=== PATIENT | female | born 1985 | race African-American/Black ===

== ENCOUNTER 2017-04-12 18:53 | Emergency (ER) | payer OTHER ==
[2017-04-12 18:58] VITALS: BP 143/89; PULSE 83; TEMP 98; BMI 28.1
--- NOTE | 2017-04-12 20:27 | PDOC ---
History of Present Illness - General Chief Complaint: Cold Symptoms Stated Complaint: WHEEZING Time Seen by Provider: 04/12/17 19:55 - History of Present Illness Initial Comments: 04/12/17 20:22 CHIEF COMPLAINT: cough HISTORY OF PRESENT ILLNESS: 31 yo F with no significant PMH presents to [facility] with cough x 3 weeks. Patient denies fever, nausea, vomiting, or diarrhea but states "I feel chills right now." Patient states she saw her ENT doctor "like 3 weeks ago" and was prescribed "some antibiotic" but she states she did not finish the entire course and is unsure what the medication was and how she was supposed to take it. She states that "school sent me home today because they said I was wheezing." PAST MEDICAL HISTORY: Denies past medical history FAMILY HISTORY: Denies SOCIAL HISTORY:Denies tobacco, alcohol, illicit drug use. SURGICAL HISTORY: Denies ALLERGIES: codeine, morphine REVIEW OF SYSTEMS General/Constitutional: Chills. Denies fever. Denies weakness. HEENT: "I always have giant tonsils, I've been trying to get them out but it hasn't happened." Denies change in vision. Cardiovascular: Denies chest pain or shortness of breath. Respiratory: Cough x 3 weeks, wheezing today. Denies hemoptysis. Gastrointestinal: Denies nausea, vomiting, diarrhea or constipation. Denies rectal bleeding. Genitourinary: Denies dysuria, frequency, or change in urination. Musculoskeletal: Denies joint or muscle swelling or pain. Denies neck or back pain. Skin and breasts: Denies rash or easy bruising. PHYSICAL EXAM General Appearance: Well-appearing, appropriately dressed. No apparent distress. HEENT: Tonsils 3+ b/l, no erythema or exudate. EOMI, PERRLA, normal voice, TMs normal. No conjunctival pallor. No photophobia, scleral icterus. Respiratory/Chest: Productive cough. Wheezing to RLL. No shortness of breath, respiratory distress, accessory muscle use. No crackles, rales, rhonchi, stridor , dullness. Cardiovascular: RRR. S1, S2. No JVD, murmur, bradycardia, tachycardia. Musculoskeletal/Extremities: Normal inspection. FROM of all extremities, normal capillary refill. No tenderness to extremities, pedal edema, swelling, erythema or deformity. Integumentary: Appropriate color, dry, warm. 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 Fully oriented, alert. Appropriate mood/affect. Motor strength 5/5. No appreciable EOM palsy, facial droop or sensory deficit. Past History - Past Medical History Allergies/Adverse Reactions: Allergies Allergy/AdvReac Type Severity Reaction Status Date / Time codeine Allergy Verified 04/12/17 18:58 morphine Allergy Verified 04/12/17 18:58 Home Medications: Ambulatory Orders Albuterol Sulfate Inhaler - [Ventolin HFA Inhaler -] 1 - 2 inh PO Q4H PRN #1 inhaler 04/12/17 Azithromycin [Zithromax 250mg Tablets -] 250 mg PO ASDIR #6 tab 04/12/17 Dextromethorphan HBr [Robitussin] 15 mg PO QID PRN #28 capsule 04/12/17 Ibuprofen 600 mg PO TID PRN #28 tablet 04/12/17 Asthma: No Cancer: No Cardiac Disorders: Yes (HEART MURMUR) Diabetes: No HTN: No Seizures: No Thyroid Disease: No - Suicide/Smoking/Psychosocial Hx Smoking History: Current every day smoker Have you smoked in the past 12 months: Yes Number of Cigarettes Smoked Daily: 6 Information on smoking cessation initiated: No 'Breaking Loose' booklet given: 03/14/16 Hx Alcohol Use: Yes (Socially) Drug/Substance Use Hx: No Substance Use Type: None Hx Substance Use Treatment: No *Physical Exam - Vital Signs Last Vital Signs Temp Pulse Resp BP Pulse Ox 98 F 83 22 143/89 99 04/12/17 18:55 04/12/17 18:55 04/12/17 18:55 04/12/17 18:55 04/12/17 18:55 ED Treatment Course - ADDITIONAL ORDERS Additional order review: Laboratory Results 04/12/17 20:10 Urine HCG, Qual Negative - RADIOLOGY Radiology Studies Ordered: Category Date Time Status CHEST PA & LAT [RAD] Stat Radiology 04/12/17 20:09 Ordered Medical Decision Making - Medical Decision Making 04/12/17 20:27 31 yo F with no significant PMH presents to fast track with cough x 3 weeks. -flu swab *DC/Admit/Observation/Transfer Diagnosis at time of Disposition: Bronchitis - Discharge Dispostion Disposition: HOME Condition at time of disposition: Stable Admit: No - Prescriptions Prescriptions: Ibuprofen 600 mg PO TID PRN #28 tablet PRN Reason: Fever or body aches Dextromethorphan HBr [Robitussin] 15 mg PO QID PRN #28 capsule PRN Reason: Cough Albuterol Sulfate Inhaler - [Ventolin HFA Inhaler -] 1 - 2 inh PO Q4H PRN #1 inhaler PRN Reason: Wheezing Azithromycin [Zithromax 250mg Tablets -] 250 mg PO ASDIR #6 tab - Patient Instructions Printed Discharge Instructions: DI for Acute Bronchitis Additional Instructions: Please take medications as prescribed. Please get plenty of rest and drink lots of fluids. Follow up with your primary care doctor in 3-5 days. If you develop any persistent fever, chills, vomiting, diarrhea or any new or worsening symptoms, please return to the ER. - Post Discharge Activity Forms/Work/School Notes: Back to Work
== END 2017-04-12 21:55 | disposition home or self-care (01) ==
LOC: JERFT 18:53
DX: J40 Bronchitis, not specified as acute or chronic (principal); R01.1 Cardiac murmur, unspecified
CPT/HCPCS: 71020-TC; 84703; 87804; 99281-25

== ENCOUNTER 2017-08-31 15:46 | Emergency (ER) | payer OTHER ==
--- NOTE | 2017-08-31 15:51 | PDOC ---
Rapid Medical Evaluation Time Seen by Provider: 08/31/17 15:47 Medical Evaluation: Allergies Allergy/AdvReac Type Severity Reaction Status Date / Time codeine Allergy Verified 04/12/17 18:58 morphine Allergy Verified 04/12/17 18:58 08/31/17 15:51 I have performed a brief in-person evaluation of this patient. The patient presents with a chief complaint of:body aches w/ f/c x 2 days, children w/ similar sxs Pertinent physical exam findings:Unremarkable I have ordered the following:nothing The patient will proceed to the ED for further evaluation. 08/31/17 15:59
[2017-08-31 15:59] VITALS: BP 154/85; PULSE 80; TEMP 98.3; BMI 27.8
--- NOTE | 2017-08-31 17:04 | PDOC ---
History of Present Illness - General Chief Complaint: Respiratory Stated Complaint: FEVER, COUGH Time Seen by Provider: 08/31/17 15:47 History Source: Patient Exam Limitations: No Limitations - History of Present Illness Initial Comments: 08/31/17 16:59 31 year old female with history of asthma present with 2 children complaining of flu-like symptoms, fever and sorethroat. States took tylenol and theraflu with no reports of relief. Timing/Duration: reports: other (3 days) Severity: reports: mild Possible Cause: Yes: illness exposure Modifying Factors: improves with: albuterol inhaler Associated Symptoms: reports: cough, muscle aches, nasal congestion, sore throat Aspirin Received prior to arrival: Yes: no aspirin today ASA Contraindications(Core Measure): No: Allergy Past History - Travel Traveled outside of the country in the last 30 days: No - Past Medical History Allergies/Adverse Reactions: Allergies Allergy/AdvReac Type Severity Reaction Status Date / Time codeine Allergy Verified 04/12/17 18:58 morphine Allergy Verified 04/12/17 18:58 Home Medications: Ambulatory Orders Oseltamivir Phosphate [Tamiflu] 75 mg PO BID 5 Days #10 capsule 08/31/17 Asthma: No Cancer: No Cardiac Disorders: Yes (HEART MURMUR) COPD: No Diabetes: No HTN: No Seizures: No Thyroid Disease: No - Suicide/Smoking/Psychosocial Hx Smoking History: Current every day smoker Have you smoked in the past 12 months: Yes Number of Cigarettes Smoked Daily: 6 Information on smoking cessation initiated: No 'Breaking Loose' booklet given: 03/14/16 Hx Alcohol Use: Yes (Socially) Drug/Substance Use Hx: No Substance Use Type: None Hx Substance Use Treatment: No Respiratory Specific PMHX - Complaint Specific PMHX Bronchitis: Yes Review of Systems - Review of Systems Able to Perform ROS?: Yes Is the patient limited Sinhala proficient: No Constitutional: Yes: Chills, Fever HEENTM: Yes: Throat Pain Respiratory: Yes: Cough Cardiac (ROS): No: Lightheadedness ABD/GI: Yes: Vomiting. No: Nausea, Poor Fluid Intake, Indigestion : No: Burning Musculoskeletal: No: Back Pain Integumentary: No: Bruising Neurological: Yes: Headache. No: Numbness *Physical Exam - Vital Signs Last Vital Signs Temp Pulse Resp BP Pulse Ox 98.3 F 80 18 154/85 99 08/31/17 15:56 08/31/17 15:56 08/31/17 15:56 08/31/17 15:56 08/31/17 15:56 - Physical Exam General Appearance: Yes: Nourished, Appropriately Dressed. No: Apparent Distress HEENT: positive: EOMI, Rhinorrhea Neck: positive: Supple. negative: Lymphadenopathy (R), Lymphadenopathy (L) Respiratory/Chest: positive: Lungs Clear. 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, Fully Oriented, Alert Medical Decision Making - Medical Decision Making 08/31/17 17:09 31 year old female with history of asthma presents with two half-way complaining of flu-like symptoms rapid strep ordered Rx: tamiflu *DC/Admit/Observation/Transfer Diagnosis at time of Disposition: Flu-like symptoms Pharyngitis Qualifiers: Pharyngitis/tonsillitis etiology: other specified organisms Qualified Code(s): J02.8 - Acute pharyngitis due to other specified organisms - Discharge Dispostion Disposition: HOME Condition at time of disposition: Good - Prescriptions Prescriptions: Oseltamivir Phosphate [Tamiflu] 75 mg PO BID 5 Days #10 capsule - Referrals - Patient Instructions Printed Discharge Instructions: DI for Viral Upper Respiratory Infection -- Adult Additional Instructions: Drink plenty fluids take medication as prescribed follow up with primary physician - Post Discharge Activity Forms/Work/School Notes: Back to Work
== END 2017-08-31 17:22 | disposition home or self-care (01) ==
LOC: JERFT 15:46
DX: J11.1 Influenza due to unidentified influenza virus with other respiratory manifestations (principal)
CPT/HCPCS: 87070; 87430; 99281-25

== ENCOUNTER 2018-06-03 12:41 | Emergency (ER) | payer OTHER ==
[2018-06-03 13:03] VITALS: BP 134/90; PULSE 84; TEMP 98.7; BMI 28.1
--- NOTE | 2018-06-03 14:42 | PDOC ---
History of Present Illness - General Chief Complaint: Cold Symptoms Stated Complaint: UPPER RESPIRATORY INFECTION Time Seen by Provider: 06/03/18 14:01 History Source: Patient Exam Limitations: No Limitations - History of Present Illness Initial Comments: 06/03/18 14:42 has been sick with upper respiratory infection this past week, needed to call in sick to work. States feels much improved but needed clearance for work return. Patient denies fever, has an infrequent nonproductive cough, and no other illness symptoms presently. Timing/Duration: reports: gone now Severity: reports: mild Associated Symptoms: reports: denies symptoms, fever/chills Past History - Travel Traveled outside of the country in the last 30 days: No Close contact w/someone who was outside of country & ill: No - Past Medical History Allergies/Adverse Reactions: Allergies Allergy/AdvReac Type Severity Reaction Status Date / Time codeine Allergy Verified 06/03/18 13:00 morphine Allergy Verified 06/03/18 13:00 oseltamivir [From Tamiflu] Allergy Verified 06/03/18 14:09 Home Medications: Ambulatory Orders NK [No Known Home Medication] 06/03/18 Asthma: No Cancer: No Cardiac Disorders: Yes (HEART MURMUR) COPD: No CHF: No Diabetes: No HTN: No Seizures: No Thyroid Disease: No - Suicide/Smoking/Psychosocial Hx Smoking History: Never smoked Have you smoked in the past 12 months: Yes Number of Cigarettes Smoked Daily: 6 Information on smoking cessation initiated: No 'Breaking Loose' booklet given: 03/14/16 Hx Alcohol Use: No Drug/Substance Use Hx: No Substance Use Type: None Hx Substance Use Treatment: No Respiratory Specific PMHX - Complaint Specific PMHX Bronchitis: Yes Review of Systems - Review of Systems Able to Perform ROS?: Yes Is the patient limited Iranian proficient: Yes Constitutional: Yes: Symptoms Reported, See HPI, Malaise. No: Fever HEENTM: Yes: Symptoms Reported, See HPI, Nose Congestion Respiratory: Yes: See HPI, Cough Integumentary: Yes: Symptoms Reported All Other Systems: Reviewed and Negative *Physical Exam - Vital Signs Last Vital Signs Temp Pulse Resp BP Pulse Ox 98.7 F 84 16 134/90 100 06/03/18 12:50 06/03/18 12:50 06/03/18 12:50 06/03/18 12:50 06/03/18 12:50 - Physical Exam General Appearance: Yes: Nourished, Appropriately Dressed. No: Apparent Distress, Mild Distress HEENT: positive: KIKE, Normal ENT Inspection, TMs Normal. negative: Pharynx Normal (grossly enlarged tonsils that are not erythematous or exudative. Patient states has baseline) Neck: positive: Tender, Supple. negative: Lymphadenopathy (R), Lymphadenopathy (L) Respiratory/Chest: positive: Lungs Clear, Normal Breath Sounds. 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, Fully Oriented, Alert, Normal Mood/ Affect, Motor Strength 11/12 Progress Note - Progress Note Progress Note: Upper respiratory infection, healing *DC/Admit/Observation/Transfer Diagnosis at time of Disposition: Upper respiratory infection, viral - Discharge Dispostion Disposition: HOME Condition at time of disposition: Stable Decision to Admit order: No - Referrals - Patient Instructions Printed Discharge Instructions: DI for Viral Upper Respiratory Infection -- Adult Additional Instructions: Rest, drink lots of fluids: Teas, water, soups, Pedialyte Saltwater gargles Steamy showers/seem to face break up mucus Avoid contact with others until fevers and cough resolved Lots of handwashing and good hygiene Continue [id number] medications for symptomatic relief Tylenol or Motrin for fever and pain Followup with private physician in one to 2 days as needed Return to emergency department for worsened symptoms, fevers, dehydration - Post Discharge Activity Forms/Work/School Notes: Back to Work
== END 2018-06-03 14:44 | disposition home or self-care (01) ==
LOC: JERFT 12:41
DX: J06.9 Acute upper respiratory infection, unspecified (principal); B97.89 Other viral agents as the cause of diseases classified elsewhere
CPT/HCPCS: 99281-25

== ENCOUNTER 2018-07-09 17:51 | Emergency (ER) | payer OTHER ==
[2018-07-09 17:59] VITALS: BP 136/87; PULSE 82; TEMP 98.4; BMI 29.5
--- NOTE | 2018-07-09 18:21 | PDOC ---
History of Present Illness - General Chief Complaint: Eye Problem Stated Complaint: REDNESS TO EYE Time Seen by Provider: 07/09/18 18:06 History Source: Patient Exam Limitations: No Limitations - History of Present Illness Initial Comments: 07/09/18 18:17 right eye itchy, red for 3 days had crusted discharge yesterday sent from work. Past History - Past Medical History Allergies/Adverse Reactions: Allergies Allergy/AdvReac Type Severity Reaction Status Date / Time codeine Allergy Verified 07/09/18 17:56 morphine Allergy Verified 07/09/18 17:56 oseltamivir [From Tamiflu] Allergy Verified 07/09/18 17:56 Home Medications: Ambulatory Orders Sulfacetamide Sodium 10% [Bleph-10] 2 drop OD Q6H #1 bottle 07/09/18 Asthma: No Cancer: No Cardiac Disorders: Yes (HEART MURMUR) COPD: No CHF: No Diabetes: No HTN: No Seizures: No Thyroid Disease: No - Suicide/Smoking/Psychosocial Hx Smoking History: Current every day smoker Have you smoked in the past 12 months: Yes Number of Cigarettes Smoked Daily: 3 Information on smoking cessation initiated: Yes 'Breaking Loose' booklet given: 03/14/16 Hx Alcohol Use: No Drug/Substance Use Hx: No Substance Use Type: None Hx Substance Use Treatment: No *Physical Exam - Vital Signs Last Vital Signs Temp Pulse Resp BP Pulse Ox 98.4 F 82 18 136/87 99 07/09/18 17:56 07/09/18 17:56 07/09/18 17:56 07/09/18 17:56 07/09/18 17:56 - Physical Exam General Appearance: Yes: Nourished, Appropriately Dressed HEENT: positive: EOMI, KIKE, TMs Normal, Pharynx Normal, Nasal Congestion, Other (right eye with mild conjunctiva redness, sclera redness, swelling to lower lid ). negative: Rhinorrhea Neck: positive: Supple Moderate Sedation - Procedure Monitoring Vital Signs: Procedure Monitoring Vital Signs Temperature 98.4 F 07/09/18 17:56 Pulse Rate 82 07/09/18 17:56 Respiratory Rate 18 07/09/18 17:56 Blood Pressure 136/87 07/09/18 17:56 O2 Sat by Pulse Oximetry (%) 99 07/09/18 17:56 Medical Decision Making - Medical Decision Making 07/09/18 18:22 cc: right eye itchy red with crusted drainage nasal congestion dc inst verbally discussed all questions asked and answered *DC/Admit/Observation/Transfer Diagnosis at time of Disposition: Conjunctivitis Qualifiers: Conjunctivitis type: acute Acute conjunctivitis type: viral Laterality: right Qualified Code(s): B30.9 - Viral conjunctivitis, unspecified - Discharge Dispostion Disposition: HOME Condition at time of disposition: Good - Prescriptions Prescriptions: Sulfacetamide Sodium 10% [Bleph-10] 2 drop OD Q6H #1 bottle - Referrals Referrals: Anup Dumas MD [Staff Physician] - - Patient Instructions Printed Discharge Instructions: DI for Conjunctivitis Additional Instructions: use the drops as directed frequent hand washing no sharing of makeup wash sheets, towels to prevent spreading to other eye follow with the eye doctor listed below if symptoms worsen or do not improve despite using the eye drops - Post Discharge Activity Forms/Work/School Notes: Back to Work
== END 2018-07-09 18:22 | disposition home or self-care (01) ==
LOC: JERFT 17:51
DX: B30.9 Viral conjunctivitis, unspecified (principal)
CPT/HCPCS: 99281-25

== ENCOUNTER 2019-02-27 13:09 | Emergency (ER) | payer OTHER ==
[2019-02-27 13:24] VITALS: TEMP 98.1; BMI 32.4
[2019-02-27] MEDS ORDERED: ACETAMINOPHEN 500 MG TABLET (FP) PO ONE (13:56)
--- NOTE | 2019-02-27 14:02 | PDOC ---
History of Present Illness - General Chief Complaint: Syncope/Near Syncope Stated Complaint: SYNCOPE Time Seen by Provider: 02/27/19 13:35 History Source: Patient Exam Limitations: No Limitations - History of Present Illness Initial Comments: 02/27/19 13:57 33yo F with no significant PMH presenting to ED with syncopal episode. Patient says she has been having syncopal episodes since she was a child but she has not had any follow up. She says that she passed out yesterday night then again this morning which prompted her ED visit. She says that both times she was playing with her kids. She says that her hands and her body starts to feel hot, she feels nauseous, she sees a neon green color and feels lightheaded. She does not notice a pattern as to what causes her to pass out. Patient states her son witnessed the episode and noticed head jerking but no mention of tonic/clonic movements. She says she is feeling short of breath and has a headache but denies confusion after episodes, incontinence, chest pain, neck pain, numbness/ tingling, weakness, dizziness, changes in vision, fevers, chills, vomiting, diarrhea, leg swelling, recent surgeries, recent travel, use of OCPs. She is not taking any medications or new supplements. No family history of sudden cardiac . PMD: PMH: none PSH: none Meds: none Allergies: morphine, codeine, tamiflu Social: 10 cigarettes/day, marijuana use, occasional alcohol use Past History - Past Medical History Allergies/Adverse Reactions: Allergies Allergy/AdvReac Type Severity Reaction Status Date / Time codeine Allergy Verified 02/27/19 13:24 morphine Allergy Verified 02/27/19 13:24 oseltamivir [From Tamiflu] Allergy Verified 02/27/19 13:24 Home Medications: Ambulatory Orders NK [No Known Home Medication] 02/27/19 Asthma: No Cancer: No Cardiac Disorders: Yes (HEART MURMUR) COPD: No CHF: No Diabetes: No HTN: No Seizures: No (refuses medication) Thyroid Disease: No - Suicide/Smoking/Psychosocial Hx Smoking History: Never smoked Have you smoked in the past 12 months: Yes Number of Cigarettes Smoked Daily: 3 'Breaking Loose' booklet given: 03/14/16 Hx Alcohol Use: No Drug/Substance Use Hx: No Substance Use Type: None Hx Substance Use Treatment: No Review of Systems - Review of Systems Constitutional: No: Chills, Fever, Weakness HEENTM: No: Symptoms Reported Respiratory: Yes: Shortness of Breath Cardiac (ROS): Yes: See HPI, Syncope ABD/GI: No: Symptoms Reported : No: Symptoms Reported Musculoskeletal: No: Symptoms Reported Integumentary: No: Symptoms Reported Neurological: No: Symptoms reported *Physical Exam - Vital Signs Last Vital Signs Temp Pulse Resp BP Pulse Ox 98.1 F 78 18 137/91 98 02/27/19 13:21 02/27/19 15:20 02/27/19 15:20 02/27/19 15:20 02/27/19 15:20 - Physical Exam General Appearance: Yes: Nourished, Appropriately Dressed. No: Apparent Distress HEENT: positive: EOMI, KIKE Neck: positive: Trachea midline, Supple. negative: Lymphadenopathy (R), Lymphadenopathy (L) Respiratory/Chest: positive: Lungs Clear, Normal Breath Sounds. negative: Rapid RR, Crackles, Rales, Rhonchi, Stridor, Wheezing Cardiovascular: positive: Regular Rhythm, Regular Rate, S1, S2. negative: Edema , JVD, Murmur Vascular Pulses: Dorsalis-Pedis (R): 2+, Doralis-Pedis (L): 2+ Gastrointestinal/Abdominal: positive: Normal Bowel Sounds, Soft. negative: Tender Musculoskeletal: negative: CVA Tenderness Extremity: positive: Normal Capillary Refill. negative: Swelling, Calf Tenderness Integumentary: positive: Normal Color, Dry, Warm Neurologic: positive: er medical technician II-XII NML intact, Fully Oriented, Alert, Normal Mood/ Affect, Normal Response, Motor Strength 5/5 Heart Score/ECG Review - ECG Intrepretation Rhythm: Regular Rhythm Comment:: 02/27/19 15:37 with sinus arrhythmia - [place]: Normal - P and [place] Delta Wave(s) Present: No WPW: No - QRS Poor R Wave Progression: No Q Wave Present: No - ST and T Early Repolarization: No Non Specific ST-T Wave changes: No Flattened T Waves: No Prolonged Q-T Interval: No - ECG Impressions Normal ECG: Yes Non-specific ST Elevation: No Ischemic Changes: No Bradycardia: No Torsades luan Pointes: No WPW: No ED Treatment Course - LABORATORY CBC & Chemistry Diagram: 02/27/19 14:15 02/27/19 14:15 - ADDITIONAL ORDERS Additional order review: Laboratory Results 02/27/19 02/27/19 02/27/19 14:15 14:15 14:15 Sodium 138 Potassium 4.2 Chloride 106 Carbon Dioxide 27 Anion Gap 5 L BUN 7.0 Creatinine 0.7 Est GFR (CKD-EPI)AfAm 133.81 Est GFR (CKD-EPI)NonAf 115.45 Random Glucose 109 H Calcium 9.0 Total Bilirubin 0.8 AST 12 L ALT 20 Alkaline Phosphatase 63 Troponin I < 0.02 Total Protein 7.2 Albumin 3.8 Urine HCG, Qual Negative 02/27/19 14:15 RBC 5.80 H MCV 73.7 L MCHC 32.2 RDW 14.7 D MPV 8.2 Neutrophils % 73.0 Lymphocytes % 19.3 Monocytes % 6.5 Eosinophils % 0.7 Basophils % 0.5 - Medications Given in the ED: ED Medications Discontinued Medications Generic Name Dose Route Start Last Admin Trade Name Ronald PRN Reason Stop Dose Admin Acetaminophen 975 mg 02/27/19 13:56 02/27/19 14:48 Tylenol - PO 02/27/19 13:57 975 mg ONCE ONE Administration Ketorolac Tromethamine 15 mg 02/27/19 16:25 02/27/19 16:37 Toradol Injection - IVPUSH 02/27/19 16:26 15 mg ONCE ONE Administration Medical Decision Making - Medical Decision Making 02/27/19 14:24 33yo F with no significant PMH presenting to ED with syncopal episode. Patient says she has been having syncopal episodes since she was a child but she has not had any follow up. She says that she passed out yesterday night then again this morning which prompted her ED visit. She says that both times she was playing with her kids. She says that her hands and her body starts to feel hot, she feels nauseous, she sees a neon green color and feels lightheaded. She does not notice a pattern as to what causes her to pass out. Patient states her son witnessed the episode and noticed head jerking but no mention of tonic/clonic movements. She says she is feeling short of breath and has a headache but denies confusion after episodes, incontinence, chest pain, neck pain, numbness/ tingling, weakness, changes in vision, fevers, chills, vomiting, diarrhea, leg swelling, recent surgeries, recent travel, use of OCPs. She is not taking any medications or new supplements. No family history of sudden cardiac . Ddx includes but not limited to vasovagal syncope, dysrhythmia, hocm, seizures, pe, anemia pt has an "aura" but no witnessed jerking or confusion, low suspicion for seizure. Patient seems to mention sycnopal episodes related to activity; will order ekg to check for dysrhythmias. PERC negative will order labs. likely vasovagal given sensations prior to these episodes. pt ambulating in ED without difficulty. 02/27/19 15:33 ekg: nsr at 78 with sinus arrhythmiapr 142. no blocks. qtc 428. no lizette or depressions. labs wnl. negative hcg. pt ambulatory. rpt vitals bp 137/91 hr 78. no syncopal episodes or seizure like activities in ED. safe for dc home. will give cardiology and neurology f/u. will advise patient to follow with pmd. Given strict return precautions. still having headache, will give toradol. OU . Does not want zofran rx *DC/Admit/Observation/Transfer Diagnosis at time of Disposition: Syncope Qualifiers: Syncope type: unspecified Qualified Code(s): R55 - Syncope and collapse - Discharge Dispostion Disposition: HOME Condition at time of disposition: Good Decision to Admit order: No - Referrals Referrals: Chrissy Patino MD [Staff Physician] - Isaias Duarte MD [Staff Physician] - - Patient Instructions Printed Discharge Instructions: DI for Syncope in Adults (Fainting) Additional Instructions: You were seen in the emergency room today for passing out (syncope). Your ekg is normal and your blood work is normal. This is likely vasovagal but I highly suggest that you see a shop service technician and a neurologist. Your primary care doctor may use a specific network, but you can reach out to the providers listed below. Please make an appointment with your primary care doctor this week regarding this ED visit. Please rest and drink plenty of fluids. Do not drive or operate machinery. You can take Motrin or Tylenol for the headaches. Come back to the emergency room if you pass out again, you have worsening headaches, you have chest pain, you feel like you cannot breathe, have changes in vision or if any new concerning symptom develops. Thank you - Post Discharge Activity Forms/Work/School Notes: Back to Work
[2019-02-27 14:39] LABS: BASO % 0.5 % (0-2.0); EOS % 0.7 % (0-4.5); HEMATOCRIT 42.7 % (32.4-45.2); HEMOGLOBIN 13.7 GM/dL (10.7-15.3); LYMPH % 19.3 % (8-40); MCH 23.7 pg (25.7-33.7); MCHC 32.2 g/dl (32.0-36.0); MEAN CELL VOLUME 73.7 fl (80-96); MEAN PLT VOLUME 8.2 fl (7.5-11.1); MONO % 6.5 % (3.8-10.2); PLATELET COUNT 301 K/MM3 (134-434); RDW 14.7 % (11.6-15.6)
[2019-02-27] MEDS ORDERED: ACETAMINOPHEN 325 MG TABLET (FP) ONE (14:46)
[2019-02-27 15:03] LABS: ALBUMIN 3.8 g/dl (3.4-5.0); BILIRUBIN,TOTAL 0.8 mg/dL (0.2-1); CREATININE 0.7 mg/dL (0.55-1.3); POTASSIUM 4.2 mmol/L (3.5-5.1); TOT PROT 7.2 g/dl (6.4-8.2)
[2019-02-27 15:21] VITALS: BP 137/91; PULSE 78
[2019-02-27] MEDS ORDERED: KETOROLAC TROMETHAMINE 30 MG/1 ML VIAL IVPUSH ONE (16:25)
[2019-02-27] MEDS ORDERED: KETOROLAC TROMETHAMINE 15 MG/ML VIAL ONE (16:31)
--- NOTE | 2019-02-27 16:33 | PDOC ---
Documentation entered by Belgica Mata SCRIBE, acting as scribe for Dina Peterson MD. Dina Peterson MD: This documentation has been prepared by the scribe, Belgica Mata SCRIBE, under my direction and personally reviewed by me in its entirety. I confirm that the documentation accurately reflects all work, treatment, procedures, and medical decision making performed by me. Attending Attestation - Resident Resident Name: HerlindaSoledad - ED Attending Attestation I have performed the following: I have examined & evaluated the patient, The case was reviewed & discussed with the resident, I agree w/resident's findings & plan, Exceptions are as noted - HPI HPI: 02/27/19 14:41 The patient is a 33-year-old female, with no past medical history, who presents to the ED s/p syncopal episode this morning. The patient reports that she also experienced a similar syncopal episode last night. During both episodes she states that she was playing her kids. She reports that her body and hands began to feel hot and subsequently she felt nauseous, lightheaded, and passed out. On exam, the patient reports that she is feeling short of breath and has a headache. The patient denies any chest pain or palpitations. Denies any weakness, vision changes, lower extremity swelling, or numbness or tingling. She denies any fevers, chills, vomiting, diarrhea, or abdominal pain. She denies any recent sick contacts or recent travel. Allergies: Codeine, morphine, oseltamivir. Social History: Current smoker (10 cigarettes daily). She reports marijuana use and occasional alcohol use. - Physicial Exam PE: 02/27/19 14:44 NAD, well appearing, EOMI, PERRL, MMM, visual acuity 20/20 no corrective lenses , nl conjunctiva, anicteric; neck supple. lungs clear, RRR, no murmur, abdomen soft nontender. Back nontender. BAZZI x4, no focal neuro deficits. No peripheral edema. normal color for ethnicity, WWP. gait stable. speech clear. oriented appropriately and alert 02/28/19 07:41 - Medical Decision Making 02/27/19 16:31 See HPI for details. Prior notes reviewed, including admissions, discharges and consultations. Vital signs reviewed, hypertensive initially, remainder of VS wnl. recheck BP Vital Signs Temp Pulse Resp BP Pulse Ox 98.1 F 78 18 137/91 98 02/27/19 13:21 02/27/19 15:20 02/27/19 15:20 02/27/19 15:20 02/27/19 15:20 DDx. syncope: considered interval abnormalities including short QTC or long QT syndrome, WPW, conduction abnormality, B[place], ACS, PE, electrolyte disturbances, metabolic derangement. seizure, laboratory results and imaging reviewed, basic labs and lytes wnl, neg preg test. Cardiac panel_neg, reassuring, doubt cardiac EKG normal sinus rhythm at 78 bpm, no interval abnormalities, narrow QRS, ST and T wave segments and morphology normal. Nonspecific T wave abnormalities ED course -interventions: analgesia, reassessed and improved neuro intact, no cp or sob or abd pain PERC neg, so doubt PE. no malignancy, immobilization, surgery or ocp use. visual acuity wnl no indication for imaging/CT at this time. VS rechecked, wnl. nontoxic appearing. ambulatory, kehinde PO intake and well appearing syncope instructions, cards and neuro f/u as outpatient, no driving or operating machinery, for further work up of fainting episodes. Pt to be discharged in stable condition. Patient and family made aware of clinical impression, treatment recommendations and disposition plan, return precautions discussed (including but not limited to new or persistent/worsening symptoms, pain, fevers, or signs of infection, chest pain, respiratory distress , inability to tolerate oral intake, dehydration, syncope, or neurologic changes ). Follow up with PMD and/or cards/neuro specialist as recommended, follow up information provided, take medications as instructed for duration of time. continue with supportive care, avoid triggers and precipitants. All questions answered to patient's satisfaction and expressed understanding and comfort with this. At the time of discharge, the patient is alert, clinically improved, tolerating po and verbalizes understanding of instructions, satisfied with the care received and felt comfortable with the plan. Patient does not suffer from an acute life-threatening medical condition at this time and is safe for outpatient follow-up. 02/27/19 16:33 02/27/19 16:34 02/27/19 16:34 02/28/19 07:42 Heart Score/ECG Review #1 ECG reviewed & interpreted by me at: 14:05 General ECG Interpretation: Sinus Rhythm, Normal Rate, Normal Intervals 02/27/19 16:33 EKG normal sinus rhythm at 78 bpm, no interval abnormalities, narrow QRS, ST and T wave segments and morphology normal. Nonspecific T wave abnormalities
--- NOTE | 2019-02-28 10:18 | EKG ---
Test Reason : Blood Pressure : / mmHG Vent. Rate : 078 BPM Atrial Rate : 078 BPM P-R Int : 142 ms QRS Dur : 074 ms QT Int : 376 ms P-R-T Axes : 057 062 027 degrees QTc Int : 428 ms NORMAL SINUS RHYTHM WITH SINUS ARRHYTHMIA NORMAL ECG NO PREVIOUS ECGS AVAILABLE Confirmed by SHIRIN MONTELONGO MD ([id number]) on 02/28/2019 10:18:20 AM Referred By: Confirmed By:SHIRIN MONTELONGO MD
== END 2019-02-27 16:40 | disposition home or self-care (01) ==
LOC: JER 13:09
PROC: 3E0333Z Introduction of Anti-inflammatory into Peripheral Vein, Percutaneous Approach (ICD-10-PCS; principal; 2019-02-27)
DX: R55 Syncope and collapse (principal)
CPT/HCPCS: 36415; 80053; 84484; 84703; 85025; 93005; 93010; 96374; 99283-25

== ENCOUNTER 2019-04-12 16:35 | Emergency (ER) | payer OTHER ==
[2019-04-12 16:54] VITALS: BMI 33.3
--- NOTE | 2019-04-12 17:18 | PDOC ---
History of Present Illness - General Chief Complaint: Pain, Acute Stated Complaint: CP/SOB & BACK PAIN Time Seen by Provider: 04/12/19 17:18 History Source: Patient Exam Limitations: No Limitations - History of Present Illness Initial Comments: 04/12/19 17:39 Adriane Dodd is a 33yF w PMHx obesity, presenting with back/chest pain and SOB. Sudden onset bilateral paraspinal mid-thoracic back pain radiating to midsternal chest, associated SOB. Pain worse leaning forward. Did not take meds. Has at least 2-4 drinks/day, half a pack daily cigarette smoker, daily marijuana user. Denies fever, headache, nausea/vomiting, cough, AB pain, urinary /bowel movement changes. Past History - Past Medical History Allergies/Adverse Reactions: Allergies Allergy/AdvReac Type Severity Reaction Status Date / Time codeine Allergy Verified 02/27/19 13:24 morphine Allergy Verified 02/27/19 13:24 oseltamivir [From Tamiflu] Allergy Verified 02/27/19 13:24 Home Medications: Ambulatory Orders NK [No Known Home Medication] 02/27/19 Asthma: No Cancer: No Cardiac Disorders: Yes (HEART MURMUR) COPD: No CHF: No Diabetes: No HTN: No Seizures: No (refuses medication) Thyroid Disease: No - Immunization History Immunization Up to Date: No - Psycho Social/Smoking Cessation Hx Smoking History: Current every day smoker Have you smoked in the past 12 months: Yes Number of Cigarettes Smoked Daily: 6 Information on smoking cessation initiated: No 'Breaking Loose' booklet given: 03/14/16 Hx Alcohol Use: No Drug/Substance Use Hx: No Substance Use Type: None Hx Substance Use Treatment: No Review of Systems - Review of Systems Constitutional: No: Chills, Fever, Malaise HEENTM: No: Eye Pain, Nose Pain, Throat Pain, Mouth Pain Respiratory: Yes: Shortness of Breath. No: Cough, Wheezing Cardiac (ROS): Yes: Chest Pain. No: Palpitations, Syncope, Chest Tightness ABD/GI: No: Abdominal Distended, Constipated, Diarrhea, Nausea, Vomiting : No: Burning, Dysuria, Discharge, Frequency, Flank Pain Musculoskeletal: Yes: Back Pain. No: Joint Pain, Joint Swelling, Muscle Pain Integumentary: No: Bruising, Dryness, Erythema Neurological: No: Headache, Numbness, Seizure, Tingling, Tremors Psychiatric: No: Anxiety, Depression, Stressors Endocrine: No: Excessive Sweating, Flushing, Intolerance to Cold, Intolerance to Heat Hematologic/Lymphatic: No: Anemia, Blood Clots *Physical Exam - Vital Signs Last Vital Signs Temp Pulse Resp BP Pulse Ox 98.6 F 87 18 143/107 H 100 04/12/19 16:52 04/12/19 16:52 04/12/19 16:52 04/12/19 16:52 04/12/19 16:52 - Physical Exam General Appearance: Yes: Nourished, Appropriately Dressed, Mild Distress HEENT: positive: EOMI, KIKE, Normal Voice (mild muffled voice baseline d/t enlarged tonsils), Hearing Grossly Normal. negative: Scleral Icterus (R), Scleral Icterus (L), Nasal Congestion, Rhinorrhea Respiratory/Chest: positive: Chest Tender (midsternal), Lungs Clear, Normal Breath Sounds. negative: Respiratory Distress, Crackles, Rales, Rhonchi, Stridor, Wheezing Cardiovascular: positive: Regular Rhythm, Regular Rate, S1, S2. negative: Edema , Murmur Gastrointestinal/Abdominal: positive: Normal Bowel Sounds, Flat, Soft. negative : Tender, Organomegaly, Distended, Guarding Musculoskeletal: negative: CVA Tenderness (R), CVA Tenderness (L) Extremity: positive: Normal Capillary Refill Integumentary: positive: Normal Color Neurologic: positive: Fully Oriented, Alert, Normal Mood/Affect, Normal Response , Responsive. negative: Numbness, Sensory Deficit, Confused, Disoriented Heart Score/ECG Review - History History: Slightly suspicious - Electrocardiogram EKG: Normal - Age Age: </= 45 - Risk Factors Risk Factors Heart Score: No Hx Hypercholesterolemia, No Hx Hypertension, No Hx Diabetes, Yes Smoking History, No Positive family hx of cardiac disease, Yes Hx Obesity Based on the list above the patient has:: 1-2 risk factors - Troponin Troponin: </= normal limit - Score Heart Score - Total: 1 ED Treatment Course - LABORATORY CBC & Chemistry Diagram: 04/12/19 18:15 04/12/19 18:15 Medical Decision Making - Medical Decision Making 04/12/19 17:40 CBC CMP trop lipase HCG EKG CXR 1L NS, tylenol, pepcid, lidoderm patch EKG shows NSR, HR 73, QTc 436, no ST changes neg HCG, normal CBC Adriane Dodd is a 33yF w PMHx obesity, presenting with back/chest pain and SOB. Sat well on room air. Likely costochondritis (sternum tender) vs MSK (lateral back muscle involvement ) vs reflux (started at night). Rule out ACS (young age, 2 risk factors), pancreatitis (hx drinking). Not PE (PERC out), not . Given 1L NS, tylenol, pepcid, lidoderm patch Anticipate d/c home if workup normal, pain relief -pending CXR, labs Signed out to night team Discharge - Discharge Information Problems reviewed: Yes Clinical Impression/Diagnosis: SOB (shortness of breath) Chest pain Qualifiers: Chest pain type: unspecified Qualified Code(s): R07.9 - Chest pain, unspecified Condition: Good - Follow up/Referral - Patient Discharge Instructions - Post Discharge Activity
[2019-04-12] MEDS ORDERED: MAG HYDROX/AL HYDROX/SIMETH -MYLANTA- ORAL SUSPENSION PO ONE (17:37)
[2019-04-12] MEDS ORDERED: ACETAMINOPHEN 500 MG TABLET (FP) PO ONE (17:37)
[2019-04-12] MEDS ORDERED: SODIUM CHLORIDE 0.9% 500 ML INFUS.BAG IV ONE (17:47)
[2019-04-12] MEDS ORDERED: FAMOTIDINE 20 MG/50 ML IVPB 20 MG/50 ML MG IVPB ONE (17:47)
[2019-04-12] MEDS ORDERED: ACETAMINOPHEN 1000 MG/100 ML VIAL (NON FORMULARY) IVPB ONE (17:47)
[2019-04-12] MEDS ORDERED: LIDOCAINE 5% TOPICAL PATCH TP ONE (17:59)
[2019-04-12] MEDS ORDERED: ACETAMINOPHEN INJECTION 100 ML IVPB ONE (18:15)
[2019-04-12] MEDS ORDERED: LIDOCAINE 5% TOPICAL PATCH ONE (18:15)
--- NOTE | 2019-04-12 18:24 | PDOC ---
Documentation entered by Shakeel Dominguez SCRIBE, acting as scribe for Jyoti Rosen DO. Jyoti Rosen DO: This documentation has been prepared by the Alberto turpin Daniel, SCRIBE, under my direction and personally reviewed by me in its entirety. I confirm that the documentation accurately reflects all work, treatment, procedures, and medical decision making performed by me. Attending Attestation - Resident Resident Name: Aayush Byrne - ED Attending Attestation I have performed the following: I have examined & evaluated the patient, The case was reviewed & discussed with the resident, I agree w/resident's findings & plan, Exceptions are as noted - HPI HPI: 04/12/19 17:51 The patient is a 33 year old female with no past medical history here today for evaluation of back pain and shortness of breath. The patient reports that she has had thoracic back pain which radiates to her chest since last night while she was smoking marijuana and denies any trauma. She notes that her pain is better while lying down and notes associated shortness of breath and headache. Patient denies lightheadedness. Denies fever, chills. Denies nausea, vomiting, diarrhea, abdominal pain. Denies lower extremity edema. Denies urinary symptoms. Denies neurological symptoms. Allergies: codeine, morphine, oseltamivir Social history: Confirms tobacco use (.5 pack a day), alcohol use (2-4 drinks daily), and daily marijuana use. - Physicial Exam PE: 04/12/19 17:59 Constitutional: Awake, alert, oriented. Patient uncomfortable appearing secondary to back pain. Head: Normocephalic. Atraumatic Eyes: PERRL. EOMI. Conjunctivae are not pale. ENT: Mucous membranes are moist and intact. Posterior pharynx without exudates or erythema. Uvula midline. Neck: Supple. Full ROM. No lymphadenopathy. Cardiovascular: Regular rate. Regular rhythm. S1, S2 regular. Distal pulses are 2+ and symmetric. Pulmonary/Chest: No evidence of respiratory distress. Clear to auscultation bilaterally No wheezing, rales or rhonchi. Abdominal: Soft and non-distended. There is no tenderness. No rebound, guarding or rigidity. No organomegaly. No palpable masses. Good bowel sounds. Back: +thoracic paraspinal tenderness. No lumbar or cervical tenderness. No CVA tenderness. Musculoskeletal: No edema. No cyanosis. No clubbing. Full range of motion in all extremities. Nocalf tenderness. Radial/pedal pulses are intact and 2+ bilaterally Skin: Skin is warm and dry. No petechiae. No purpura. Neurological: Alert and oriented to person, place, and time. Cranial nerves II -XII are grossly intact. Normal speech. Strength is grossly symmetric. No sensory deficits. Psychiatric: Good eye contact. Normal interaction, affect and behavior. - Medical Decision Making 04/12/19 18:23 I, Dr. Jyoti Rosen, DO, attest that this document has been prepared under my direction and personally reviewed by me in its entirety. I further attest, that it accurately reflects all work, treatment, procedures and medical decision -making performed by me. a/p: 33yo female with hx of marijuana use -was smoking last night when she developed acute upper back pain -pt states feeling spasm in upper thoracic with radiation around to the front -pt denies assoc cp/sob- but feels her back pulling when she takes a deep breath -no n/v/d -no abd pain -will send labs, will give meds for spasm -will obtain xray chest -will monitor and reassess -acute ttp on paraspinal muscles of thoracic spine -will monitor and reassess 04/12/19 19:32 trop neg lipase neg labs reviewed no elevated wbc will dose toradol and robaxin for back pain 04/12/19 20:09 cxr neg 04/12/19 20:31 pt feeling much better pt sitting up and moving around pt states pain much improved. laughing, eating, joking with her boyfriend stable for dc to home discussed labs and imaging results
[2019-04-12 18:31] LABS: BASO % 0.5 % (0-2.0); EOS % 0.8 % (0-4.5); HEMATOCRIT 44.2 % (32.4-45.2); HEMOGLOBIN 14.1 GM/dL (10.7-15.3); LYMPH % 22.2 % (8-40); MCH 23.6 pg (25.7-33.7); MEAN CELL VOLUME 73.6 fl (80-96); MEAN PLT VOLUME 8.6 fl (7.5-11.1); NEUT % 68.5 % (42.8-82.8); PLATELET COUNT 363 K/MM3 (134-434); RDW 14.9 % (11.6-15.6); WHITE BLOOD COUNT 9.8 K/mm3 (4.0-10.0)
[2019-04-12 19:11] LABS: ALBUMIN 3.8 g/dl (3.4-5.0); ALK PHOS 65 U/L (45-117); ANION GAP 8 MMOL/L (8-16); BILIRUBIN,TOTAL 0.6 mg/dL (0.2-1); BLOOD UREA NITROGEN 8.9 mg/dL (7-18); CHLORIDE 106 mmol/L (98-107); CO2 25 mmol/L (21-32); CREATININE 0.6 mg/dL (0.55-1.3); GLUCOSE,RANDOM 83 mg/dL (74-106); LIPASE 80 U/L (73-393); POTASSIUM 4.2 mmol/L (3.5-5.1); SGOT/AST 16 U/L (15-37); SGPT/ALT 19 U/L (13-61); SODIUM 139 mmol/L (136-145); TOT PROT 7.4 g/dl (6.4-8.2)
[2019-04-12] MEDS ORDERED: METHOCARBAMOL 500 MG TABLET PO ONE (19:32)
[2019-04-12] MEDS ORDERED: KETOROLAC TROMETHAMINE 30 MG/1 ML VIAL IVPUSH ONE (19:32)
[2019-04-12] MEDS ORDERED: KETOROLAC TROMETHAMINE 30 MG/1 ML VIAL ONE (19:36)
[2019-04-12] MEDS ORDERED: METHOCARBAMOL 500 MG TABLET ONE (19:36)
[2019-04-12 19:47] VITALS: BP 131/77; PULSE 67; TEMP 98.1
--- NOTE | 2019-04-12 19:56 | PDOC ---
*Physical Exam - Vital Signs Last Vital Signs Temp Pulse Resp BP Pulse Ox 98.1 F 67 18 131/77 100 04/12/19 19:46 04/12/19 19:46 04/12/19 16:52 04/12/19 19:46 04/12/19 19:46 - Physical Exam Comments: 04/12/19 19:55 - Sign out received from Dr. Spears - Patient taken for her CXR, results will wait for result 04/12/19 20:19 - CXR shows no acute pathology - Patient still complaining of pain - Will monitor for improvement of pain before D/C ED Treatment Course - LABORATORY CBC & Chemistry Diagram: 04/12/19 18:15 04/12/19 18:15 - ADDITIONAL ORDERS Additional order review: Laboratory Results 04/12/19 04/12/19 04/12/19 18:15 18:15 18:15 Sodium 139 Cancelled Potassium 4.2 Cancelled Chloride 106 Cancelled Carbon Dioxide 25 Cancelled Anion Gap 8 Cancelled BUN 8.9 Cancelled Creatinine 0.6 Cancelled Est GFR (CKD-EPI)AfAm 140.77 Cancelled Est GFR (CKD-EPI)NonAf 121.46 Cancelled Random Glucose 83 Cancelled Calcium 9.0 Cancelled Total Bilirubin 0.6 Cancelled AST 16 Cancelled ALT 19 Cancelled Alkaline Phosphatase 65 Cancelled Troponin I < 0.02 Total Protein 7.4 Cancelled Albumin 3.8 Cancelled Lipase 80 Serum , Qual Negative 04/12/19 18:15 RBC 6.00 H MCV 73.6 L MCHC 32.0 RDW 14.9 MPV 8.6 Neutrophils % 68.5 Lymphocytes % 22.2 Monocytes % 8.0 Eosinophils % 0.8 Basophils % 0.5 - Medications Given in the ED: ED Medications Discontinued Medications Generic Name Dose Route Start Last Admin Trade Name Freq PRN Reason Stop Dose Admin Acetaminophen 975 mg 04/12/19 17:37 04/12/19 18:51 Tylenol - PO 04/12/19 17:38 Not Given ONCE ONE Acetaminophen 1,000 mg 04/12/19 17:47 04/12/19 18:27 Ofirmev Injection - IVPB 04/12/19 17:48 1,000 mg ONCE ONE Administration Al Hydroxide/Mg Hydroxide 30 ml 04/12/19 17:37 04/12/19 18:51 Mylanta Suspension - PO 04/12/19 17:38 Not Given ONCE ONE Famotidine/Sodium Chloride 20 mg in 50 mls @ 100 mls/hr 04/12/19 17:47 18:51 Pepcid 20 Mg Premixed Ivpb - IVPB 04/12/19 18:16 Not Given ONCE ONE Ketorolac Tromethamine 30 mg 04/12/19 19:32 04/12/19 19:38 Toradol Injection - IVPUSH 04/12/19 19:33 30 mg ONCE ONE Administration Lidocaine 1 patch 04/12/19 17:59 04/12/19 18:27 Lidoderm Patch - TP 04/12/19 18:00 1 patch ONCE ONE Administration Methocarbamol 1,000 mg 04/12/19 19:32 04/12/19 19:38 Robaxin - PO 04/12/19 19:33 1,000 mg ONCE ONE Administration Sodium Chloride 1,000 ml 04/12/19 17:47 04/12/19 18:27 Normal Saline - IV 04/12/19 17:48 1,000 ml ONCE ONE Administration Discharge - Discharge Information Problems reviewed: Yes Clinical Impression/Diagnosis: SOB (shortness of breath) Chest pain Qualifiers: Chest pain type: unspecified Qualified Code(s): R07.9 - Chest pain, unspecified Condition: Good - Admission No - Follow up/Referral - Patient Discharge Instructions Additional Instructions: You presented to the ER with complaints of back and chest pain. We did a scan of your heart (EKG), blood work, and an X Ray of your chest. You received medication to manage your pain. We did not see any abnormalities requiring acute treatment in any of your tests, and you do not require any further treatment. Medication: - Please take Motrin 600mg by mouth if you feel any pain, not more than 3 times a day. - Please take Robaxin 500mg by mouthif you feel any spasms, not more than twice per day. Follow up: - Please follow up with your primary care physician within 1 week. If you do not have a PCP, please make an appointment at the [facility]. Additional information: - Please return to the ER if you experience worsening of your symptoms. - Post Discharge Activity
[2019-04-12] MEDS ORDERED: LIDOCAINE PATCH REMOVAL MC SCH (22:00)
--- NOTE | 2019-04-13 12:22 | EKG ---
Test Reason : Blood Pressure : / mmHG Vent. Rate : 073 BPM Atrial Rate : 073 BPM P-R Int : 172 ms QRS Dur : 080 ms QT Int : 396 ms P-R-T Axes : 048 050 020 degrees QTc Int : 436 ms NORMAL SINUS RHYTHM NORMAL ECG WHEN COMPARED WITH ECG OF 27-FEB-2019 14:05, NO SIGNIFICANT CHANGE WAS FOUND Confirmed by LALI AKERS MD ([id number]) on 04/13/2019 12:21:46 PM Referred By: Confirmed By:LALI AKERS MD
== END 2019-04-12 21:01 | disposition home or self-care (01) ==
LOC: JER 16:35
PROC: 3E033NZ Introduction of Analgesics, Hypnotics, Sedatives into Peripheral Vein, Percutaneous Approach (ICD-10-PCS; principal; 2019-04-12)
PROC: 3E0333Z Introduction of Anti-inflammatory into Peripheral Vein, Percutaneous Approach (ICD-10-PCS; 2019-04-12)
DX: R07.9 Chest pain, unspecified (principal); M54.6 Pain in thoracic spine; R06.02 Shortness of breath; F12.10 Cannabis abuse, uncomplicated
CPT/HCPCS: 36415; 71045-TC-FY; 80053; 83690; 84484; 84703; 85025; 93005; 93010; 99285-25; J0131

== ENCOUNTER 2021-04-16 12:20 | Emergency (ER) | payer OTHER ==
[2021-04-16 12:56] VITALS: BP 135/82; PULSE 85; TEMP 98.1; BMI 31.6
== END 2021-04-16 13:58 | disposition home or self-care (01) ==
LOC: JERFT 12:20
DX: H02.824 Cysts of left upper eyelid (principal); M25.571 Pain in right ankle and joints of right foot
CPT/HCPCS: 99283-25

== ENCOUNTER 2021-06-23 13:47 | Emergency (ER) | payer OTHER ==
[2021-06-23 14:18] VITALS: BP 144/101; PULSE 82; TEMP 98.2; BMI 30.4
[2021-06-23] MEDS ORDERED: ERYTHROMYCIN 0.5% OPHTHALMIC OINTMENT 3.5 GM TUBE OD ONE (16:55)
[2021-06-23] MEDS ORDERED: ERYTHROMYCIN 0.5% OPHTHALMIC OINTMENT 3.5 GM TUBE ONE (17:02)
== END 2021-06-23 17:15 | disposition home or self-care (01) ==
LOC: JER 13:47
DX: H57.11 Ocular pain, right eye (principal)
CPT/HCPCS: 99283-25

== ENCOUNTER 2021-09-25 21:39 | Emergency (ER) | payer OTHER ==
[2021-09-25 21:44] VITALS: TEMP 97; BMI 32.3
[2021-09-25] MEDS ORDERED: DIPHTH,PERTUSS(ACELL),TET 0.5 ML DISP.SYRIN IM ONE ×2 (22:00→22:01)
[2021-09-25 22:27] VITALS: BP 148/88; PULSE 88
== END 2021-09-25 22:20 | disposition home or self-care (01) ==
LOC: JERFT 21:39
PROC: 3E0234Z Introduction of Serum, Toxoid and Vaccine into Muscle, Percutaneous Approach (ICD-10-PCS; principal; 2021-09-25)
DX: S61.311A Laceration without foreign body of left index finger with damage to nail, initial encounter (principal); W26.0XXA Contact with knife, initial encounter; Y93.G1 Activity, food preparation and clean up
CPT/HCPCS: 90471; 90715; 99284-25

== ENCOUNTER 2021-12-16 17:08 | Emergency (ER) | payer OTHER ==
[2021-12-16 17:35] VITALS: TEMP 98.2; BMI 31.6
[2021-12-16] MEDS ORDERED: ONDANSETRON *ODT* 4 MG TABLET SL ONE (18:42)
[2021-12-16] MEDS ORDERED: ACETAMINOPHEN 325 MG TABLET (FP) PO ONE (18:42)
[2021-12-16] MEDS ORDERED: ACETAMINOPHEN 325 MG TABLET (FP) ONE (18:48)
[2021-12-16] MEDS ORDERED: ONDANSETRON *ODT* 4 MG TABLET ONE (18:49)
[2021-12-16 18:56] LABS: EPI CELLS 14 /uL (0-25.1); HYALINE CASTS 3 /uL (0-3.1); URINE APPEARANCE CLEAR; URINE BACTERIA 84 /uL (0-1359); URINE BILIRUBIN 1+ (NEGATIVE); URINE COLOR DK YELLOW; URINE GLUCOSE (UA) NEGATIVE (NEGATIVE); URINE KETONE 1+ (NEGATIVE); URINE LEUK ESTERASE NEGATIVE (NEGATIVE); URINE NITRITE NEGATIVE (NEGATIVE); URINE PROTEIN TRACE (NEGATIVE); URINE RBC 41 /uL (0-23.9); URINE WBC 7 /uL (0-25.8)
[2021-12-16 19:48] LABS: BASO % 0.2 % (0-2.0); EOS % 0.4 % (0-4.5); HEMATOCRIT 42.4 % (32.4-45.2); HEMOGLOBIN 13.6 GM/dL (10.7-15.3); LYMPH % 17.8 % (8-40); MCH 23.2 pg (25.7-33.7); MCHC 32.1 g/dl (32.0-36.0); MEAN CELL VOLUME 72.1 fl (80-96); MEAN PLT VOLUME 7.7 fl (7.5-11.1); MONO % 9.6 % (3.8-10.2); PLATELET COUNT 380 10^3/uL (134-434); RBC 5.88 M/mm3 (3.60-5.2); RDW 14.2 % (11.6-15.6); WHITE BLOOD COUNT 10.5 K/mm3 (4.0-10.0)
[2021-12-16 20:01] LABS: ACTIVATED PTT 41.3 SECONDS (25.2-36.5); INR 1.36 (0.83-1.09); PROTHROMBIN TIME (PATIENT) 15.7 SEC (9.7-13.0)
[2021-12-16 20:13] LABS: CALCIUM 9.5 mg/dL (8.5-10.1)
[2021-12-16 20:14] LABS: ALBUMIN 4.2 g/dl (3.4-5.0); BLOOD UREA NITROGEN 7.8 mg/dL (7-18)
[2021-12-16 20:17] LABS: CREATININE 0.7 mg/dL (0.55-1.3)
[2021-12-16 20:19] LABS: BILIRUBIN,TOTAL 1.1 mg/dL (0.2-1)
[2021-12-16] MEDS ORDERED: SODIUM CHLORIDE 1,000 ML IV STA (20:51)
[2021-12-16 22:36] VITALS: BP 124/80; PULSE 76
== END 2021-12-16 22:56 | disposition home or self-care (01) ==
LOC: JER 17:08
PROC: 3E0337Z Introduction of Electrolytic and Water Balance Substance into Peripheral Vein, Percutaneous Approach (ICD-10-PCS; principal; 2021-12-16)
DX: O26.891 Other specified pregnancy related conditions, first trimester (principal); R10.9 Unspecified abdominal pain; Z3A.01 Less than 8 weeks gestation of pregnancy
CPT/HCPCS: 36415; 76801-TC; 80053; 81003; 84702; 84703; 85025; 85610; 85730; 86850; 86900; 86901; 87086; 99284-25; Q0162

== ENCOUNTER 2021-12-29 23:27 | Emergency (ER) | payer OTHER ==
[2021-12-29 23:47] VITALS: BP 132/78; PULSE 100; TEMP 98.2; BMI 29.9
[2021-12-30] MEDS ORDERED: ONDANSETRON 4 MG/2 ML VIAL IVPUSH ONE ×2 (01:01→03:24)
[2021-12-30] MEDS ORDERED: DEXTROSE 5%-NORMAL SALINE 500 ML IV ONE (01:01)
[2021-12-30 01:13] LABS: BASO % 0.3 % (0-2.0); EOS % 0.2 % (0-4.5); HEMATOCRIT 42.7 % (32.4-45.2); HEMOGLOBIN 14.1 GM/dL (10.7-15.3); MCH 23.5 pg (25.7-33.7); MEAN CELL VOLUME 71.1 fl (80-96); MEAN PLT VOLUME 7.6 fl (7.5-11.1); MONO % 8.3 % (3.8-10.2); NEUT % 76.2 % (42.8-82.8); PLATELET COUNT 397 10^3/uL (134-434); RBC 6.01 M/mm3 (3.60-5.2); RDW 13.8 % (11.6-15.6); WHITE BLOOD COUNT 12.3 K/mm3 (4.0-10.0)
[2021-12-30] MEDS ORDERED: ONDANSETRON 4 MG/2 ML VIAL ONE ×2 (01:14→03:37)
[2021-12-30 01:48] LABS: ALBUMIN 4.4 g/dl (3.4-5.0); BLOOD UREA NITROGEN 8.1 mg/dL (7-18); CALCIUM 9.9 mg/dL (8.5-10.1)
[2021-12-30 01:52] LABS: CREATININE 0.6 mg/dL (0.55-1.3)
[2021-12-30 01:54] LABS: TOT PROT 8.6 g/dl (6.4-8.2)
[2021-12-30 02:26] LABS: EPI CELLS >36 /uL (0-25.1); HYALINE CASTS 11 /uL (0-3.1); PH,URINE 6.5 (5.0-8.0); URINE APPEARANCE CLOUDY; URINE BILIRUBIN 2+ (NEGATIVE); URINE COLOR DK YELLOW; URINE GLUCOSE (UA) NEGATIVE (NEGATIVE); URINE KETONE 4+ (NEGATIVE); URINE LEUK ESTERASE TRACE (NEGATIVE); URINE NITRITE POSITIVE (NEGATIVE); URINE PROTEIN 3+ (NEGATIVE); URINE WBC 21 /uL (0-25.8)
[2021-12-30] MEDS ORDERED: CEPHALEXIN MONOHYDRATE 500 MG CAPSULE (UD) PO ONE (02:36)
[2021-12-30] MEDS ORDERED: ACETAMINOPHEN 325 MG TABLET (FP) PO ONE (03:24)
[2021-12-30] MEDS ORDERED: METOCLOPRAMIDE HCL INJECTION 10 MG/2 ML VIAL IVPUSH ONE (03:31)
[2021-12-30] MEDS ORDERED: LACTATED RINGERS SOLUTION 1000 ML INFUS.BAG IV ONE (03:31)
[2021-12-30] MEDS ORDERED: METOCLOPRAMIDE HCL INJECTION 10 MG/2 ML VIAL ONE (03:37)
[2021-12-30] MEDS ORDERED: CEPHALEXIN MONOHYDRATE 500 MG CAPSULE (UD) ONE (03:37)
[2021-12-30] MEDS ORDERED: ACETAMINOPHEN 325 MG TABLET (FP) ONE (03:37)
[2021-12-30 03:52] LABS: URINE BACTERIA 66.8 /uL (0-1359)
== END 2021-12-30 04:58 | disposition home or self-care (01) ==
LOC: JER 23:27
PROC: 3E033GC Introduction of Other Therapeutic Substance into Peripheral Vein, Percutaneous Approach (ICD-10-PCS; principal; 2021-12-29)
PROC: 3E033GC Introduction of Other Therapeutic Substance into Peripheral Vein, Percutaneous Approach (ICD-10-PCS; 2021-12-29)
DX: O23.41 Unspecified infection of urinary tract in pregnancy, first trimester (principal); O21.9 Vomiting of pregnancy, unspecified; Z3A.08 8 weeks gestation of pregnancy
CPT/HCPCS: 36415; 76801-TC; 80053; 81003; 85025; 87086; 99284-25

== ENCOUNTER 2022-06-01 11:29 | Emergency (ER) | payer OTHER ==
[2022-06-01 12:02] VITALS: RESP 18; BMI 29.0
[2022-06-01] MEDS ORDERED: ONDANSETRON 4 MG/2 ML VIAL IVPUSH ONE (12:46)
[2022-06-01] MEDS ORDERED: LORazepam 2 MG TABLET PO ONE (12:55)
[2022-06-01] MEDS ORDERED: DIPHTH,PERTUSS(ACELL),TET 0.5 ML DISP.SYRIN IM ONE ×2 (12:58→14:13)
[2022-06-01] MEDS ORDERED: ACETAMINOPHEN 500 MG TABLET (FP) PO ONE (13:50)
[2022-06-01] MEDS ORDERED: ACETAMINOPHEN 1000 MG/100 ML BAG IVPB ONE (14:03)
[2022-06-01] MEDS ORDERED: ONDANSETRON 4 MG/2 ML VIAL ONE (14:13)
[2022-06-01] MEDS ORDERED: ACETAMINOPHEN INJECTION 100 ML IVPB ONE (14:13)
[2022-06-01] MEDS ORDERED: BACITRACIN 15 GM TUBE TOPICAL OINTMENT TP ONE (14:45)
[2022-06-01] MEDS ORDERED: BACITRACIN 0.9 GM PACKET ONE (14:48)
[2022-06-01 14:53] LABS: BASO % 0.3 % (0-2.0); EOS % 0.4 % (0-4.5); HEMATOCRIT 46.6 % (32.4-45.2); HEMOGLOBIN 14.7 GM/dL (10.7-15.3); LYMPH % 21.8 % (8-40); MCH 23.3 pg (25.7-33.7); MCHC 31.5 g/dl (32.0-36.0); MEAN PLT VOLUME 8.8 fl (7.5-11.1); MONO % 8.6 % (3.8-10.2); NEUT % 68.9 % (42.8-82.8); PLATELET COUNT 319 10^3/uL (134-434); RBC 6.29 M/mm3 (3.60-5.2); RDW 14.5 % (11.6-15.6); WHITE BLOOD COUNT 11.4 K/mm3 (4.0-10.0)
[2022-06-01 14:58] LABS: EPI CELLS 25 /uL (0-25.1); HCG,QUALITATIVE URINE Negative; HYALINE CASTS 0 /uL (0-3.1); PH,URINE 7.5 (5.0-8.0); URINE APPEARANCE CLEAR; URINE BACTERIA 274 /uL (0-1359); URINE BILIRUBIN NEGATIVE (NEGATIVE); URINE COLOR YELLOW; URINE GLUCOSE (UA) NEGATIVE (NEGATIVE); URINE KETONE NEGATIVE (NEGATIVE); URINE LEUK ESTERASE NEGATIVE (NEGATIVE); URINE NITRITE NEGATIVE (NEGATIVE); URINE PROTEIN 1+ (NEGATIVE); URINE RBC 84 /uL (0-23.9); URINE WBC 8 /uL (0-25.8)
[2022-06-01 15:42] LABS: CALCIUM 8.9 mg/dL (8.5-10.1)
[2022-06-01 15:43] LABS: BLOOD UREA NITROGEN 7.5 mg/dL (7-18); MAGNESIUM 1.8 mg/dL (1.8-2.4)
[2022-06-01 15:46] LABS: CREATININE 0.7 mg/dL (0.55-1.3)
[2022-06-01 15:48] LABS: BILIRUBIN,TOTAL 0.7 mg/dL (0.2-1); TOT PROT 7.8 g/dl (6.4-8.2)
[2022-06-01 16:30] VITALS: BP 153/116; PULSE 85; TEMP 98.7
== END 2022-06-01 17:26 | disposition home or self-care (01) ==
LOC: JER 11:29
PROC: 3E0333Z Introduction of Anti-inflammatory into Peripheral Vein, Percutaneous Approach (ICD-10-PCS; principal; 2022-06-01)
PROC: 3E0234Z Introduction of Serum, Toxoid and Vaccine into Muscle, Percutaneous Approach (ICD-10-PCS; 2022-06-01)
DX: S91.312A Laceration without foreign body, left foot, initial encounter (principal); S09.90XA Unspecified injury of head, initial encounter; F10.129 Alcohol abuse with intoxication, unspecified; W01.0XXA Fall on same level from slipping, tripping and stumbling without subsequent striking against object, initial encounter
CPT/HCPCS: 36415; 70450-TC; 72125-TC; 73610-TC-RT-FY; 73630-TC-RT-FY; 80053; 81003; 83735; 84703; 85025; 87086; 90471; 90715; 93005; 93010; 96374; 99285-25

== ENCOUNTER 2023-01-26 20:34 | Emergency (ER) | payer OTHER ==
[2023-01-26 20:40] VITALS: TEMP 98.2; BMI 31.3
[2023-01-26] MEDS ORDERED: SODIUM CHLORIDE 0.9% 500 ML INFUS.BAG IV ONE (21:43)
[2023-01-26] MEDS ORDERED: METOCLOPRAMIDE HCL INJECTION 10 MG/2 ML VIAL IVPB ONE (21:43)
[2023-01-26] MEDS ORDERED: METOCLOPRAMIDE HCL INJECTION 10 MG/2 ML VIAL ONE (22:06)
[2023-01-26] MEDS ORDERED: diphenhydrAMINE HCL 12.5 MG/5 ML UNIT-DOSE CUPS ONE (22:06)
[2023-01-26 22:22] LABS: URINE APPEARANCE CLEAR; URINE BILIRUBIN NEGATIVE (NEGATIVE); URINE COLOR YELLOW; URINE GLUCOSE (UA) NEGATIVE (NEGATIVE); URINE KETONE NEGATIVE (NEGATIVE); URINE LEUK ESTERASE NEGATIVE (NEGATIVE); URINE NITRITE NEGATIVE (NEGATIVE); URINE PROTEIN NEGATIVE (NEGATIVE); URINE UROBILINOGEN 0.2 mg/dL (0.2-1.0)
[2023-01-26 22:38] LABS: BASO % 0.5 % (0-2.0); EOS % 0.6 % (0-4.5); HEMATOCRIT 40.1 % (32.4-45.2); HEMOGLOBIN 12.8 GM/dL (10.7-15.3); LYMPH % 24.6 % (8-40); MCH 23.4 pg (25.7-33.7); MEAN CELL VOLUME 73.1 fl (80-96); MEAN PLT VOLUME 8.2 fl (7.5-11.1); MONO % 7.6 % (3.8-10.2); NEUT % 66.7 % (42.8-82.8); PLATELET COUNT 353 10^3/uL (134-434); RBC 5.49 M/mm3 (3.60-5.2); RDW 15.7 % (11.6-15.6); WHITE BLOOD COUNT 11.3 K/mm3 (4.0-10.0)
[2023-01-26 23:10] LABS: POTASSIUM 4.5 mmol/L (3.5-5.1)
[2023-01-26 23:13] LABS: ALBUMIN 3.8 g/dl (3.4-5.0); CALCIUM 9.4 mg/dL (8.5-10.1)
[2023-01-26 23:14] LABS: BLOOD UREA NITROGEN 11.3 mg/dL (7-18)
[2023-01-26 23:16] LABS: CREATININE 0.7 mg/dL (0.55-1.3)
[2023-01-26 23:19] LABS: BILIRUBIN,TOTAL 0.9 mg/dL (0.2-1); TOT PROT 7.4 g/dl (6.4-8.2)
[2023-01-27] MEDS ORDERED: ENALAPRIL MALEATE 5 MG TABLET PO ONE (00:27)
[2023-01-27 00:31] VITALS: BP 147/102; PULSE 87; RESP 14
== END 2023-01-27 00:36 | disposition home or self-care (01) ==
LOC: JER 20:34
PROC: 3E033GC Introduction of Other Therapeutic Substance into Peripheral Vein, Percutaneous Approach (ICD-10-PCS; principal; 2023-01-26)
PROC: 3E033GC Introduction of Other Therapeutic Substance into Peripheral Vein, Percutaneous Approach (ICD-10-PCS; 2023-01-26)
DX: R42 Dizziness and giddiness (principal); H53.71 Glare sensitivity; H93.239 Hyperacusis, unspecified ear; R06.02 Shortness of breath; R11.0 Nausea; R51.9 Headache, unspecified
CPT/HCPCS: 36415; 70450-TC; 71045-TC-FY; 80053; 81003; 83690; 84484; 84703; 85025; 87086; 93005; 93010; 99285-25

== ENCOUNTER 2023-02-02 14:37 | Emergency (ER) | payer OTHER ==
[2023-02-02 14:56] VITALS: BMI 31.6
[2023-02-02] MEDS ORDERED: METOCLOPRAMIDE HCL INJECTION 10 MG/2 ML VIAL IVPUSH ONE (15:44)
[2023-02-02] MEDS ORDERED: ACETAMINOPHEN 1000 MG/100 ML BAG IVPB ONE (15:44)
[2023-02-02] MEDS ORDERED: METOCLOPRAMIDE HCL INJECTION 10 MG/2 ML VIAL ONE (15:55)
[2023-02-02] MEDS ORDERED: ACETAMINOPHEN INJECTION 100 ML IVPB ONE (15:55)
[2023-02-02] MEDS ORDERED: ENALAPRIL MALEATE 5 MG TABLET PO ONE (16:02)
[2023-02-02] MEDS ORDERED: LACTATED RINGERS SOLUTION 1000 ML INFUS.BAG IV ONE (16:04)
[2023-02-02] MEDS ORDERED: ENALAPRIL MALEATE 5 MG TABLET ONE (16:19)
[2023-02-02] MEDS ORDERED: FAMOTIDINE 20 MG/50 ML IVPB 20 MG/50 ML MG IVPB ONE (16:50)
[2023-02-02] MEDS ORDERED: MAG HYDROX/AL HYDROX/SIMETH -MYLANTA- ORAL SUSPENSION PO ONE (16:50)
[2023-02-02 17:00] LABS: BASO % 0.5 % (0-2.0); EOS % 0.4 % (0-4.5); HEMATOCRIT 44.1 % (32.4-45.2); HEMOGLOBIN 14.2 GM/dL (10.7-15.3); LYMPH % 24.2 % (8-40); MCH 23.6 pg (25.7-33.7); MCHC 32.2 g/dl (32.0-36.0); MEAN CELL VOLUME 73.4 fl (80-96); MEAN PLT VOLUME 8.6 fl (7.5-11.1); MONO % 8.1 % (3.8-10.2); NEUT % 66.8 % (42.8-82.8); PLATELET COUNT 383 10^3/uL (134-434); RBC 6.01 M/mm3 (3.60-5.2); RDW 15.3 % (11.6-15.6); WHITE BLOOD COUNT 10.8 K/mm3 (4.0-10.0)
[2023-02-02 17:12] LABS: POTASSIUM 3.9 mmol/L (3.5-5.1)
[2023-02-02 17:14] LABS: ALBUMIN 4.1 g/dl (3.4-5.0); BLOOD UREA NITROGEN 8.8 mg/dL (7-18); CALCIUM 9.1 mg/dL (8.5-10.1); MAGNESIUM 1.9 mg/dL (1.8-2.4)
[2023-02-02 17:17] LABS: CREATININE 0.9 mg/dL (0.55-1.3); PHOSPHOROUS 3.2 mg/dL (2.5-4.9)
[2023-02-02 17:19] LABS: BILIRUBIN,TOTAL 0.9 mg/dL (0.2-1); TOT PROT 8.1 g/dl (6.4-8.2)
[2023-02-02 17:23] LABS: PH,URINE 6.5 (5.0-8.0); URINE APPEARANCE CLEAR; URINE BILIRUBIN NEGATIVE (NEGATIVE); URINE COLOR YELLOW; URINE GLUCOSE (UA) NEGATIVE (NEGATIVE); URINE KETONE NEGATIVE (NEGATIVE); URINE LEUK ESTERASE NEGATIVE (NEGATIVE); URINE NITRITE NEGATIVE (NEGATIVE); URINE PROTEIN NEGATIVE (NEGATIVE); URINE UROBILINOGEN 0.2 mg/dL (0.2-1.0)
[2023-02-02 19:01] VITALS: BP 146/94; PULSE 71; RESP 20; TEMP 97.8
== END 2023-02-02 19:01 | disposition home or self-care (01) ==
LOC: JER 14:37
PROC: 3E033GC Introduction of Other Therapeutic Substance into Peripheral Vein, Percutaneous Approach (ICD-10-PCS; principal; 2023-02-02)
PROC: 3E033GC Introduction of Other Therapeutic Substance into Peripheral Vein, Percutaneous Approach (ICD-10-PCS; 2023-02-02)
PROC: 3E033GC Introduction of Other Therapeutic Substance into Peripheral Vein, Percutaneous Approach (ICD-10-PCS; 2023-02-02)
DX: I10 Essential (primary) hypertension (principal)
CPT/HCPCS: 36415; 71045-TC-FY; 80053; 81003; 83735; 84100; 84443; 84484; 84703; 85025; 93005; 93010; 99285-25